=== PATIENT | female | born 1970 | race Caucasian/White ===

== ENCOUNTER → 2018-04-27 | Outpatient (CLI) | payer MEDICARE, OTHER ==
[~2018-04-27] MED LIST: UNKNOWN PSYCH MED
[2018-04-27 15:27] LABS: HEMOGLOBIN A1C 5.7 % (4.5-6.2)
[2018-04-27 15:35] LABS: CHOL/HDL RATIO 2.9 (3.9-5.7)
== END | disposition home or self-care (01) ==
LOC: LABMN 11:00
PROVIDERS: ATTEND Psychiatry & Neurology Psychiatry
DX: Z13.1 Encounter for screening for diabetes mellitus (principal); F25.9 Schizoaffective disorder, unspecified; Z79.899 Other long term (current) drug therapy
CPT/HCPCS: 82947; 83036

== ENCOUNTER 2019-06-04 14:07 | Emergency (ER) | payer MEDICARE, OTHER ==
[~2019-06-04] VITALS: Ht 162.6 cm; Wt 88.6 kg
[2019-06-04] MEDS ORDERED: BUPR75 PO (15:13)
[2019-06-04] MEDS ORDERED: LAMO100 PO (15:13)
[2019-06-04] MEDS ORDERED: ARIP5TAB8 PO (15:13)
[2019-06-04 15:54] VITALS: BP 129/78
== END 2019-06-04 16:01 | disposition home or self-care (01) ==
LOC: EMS 14:08
DX: F20.9 Schizophrenia, unspecified (principal); F31.9 Bipolar disorder, unspecified; Z76.0 Encounter for issue of repeat prescription; Z53.21 Procedure and treatment not carried out due to patient leaving prior to being seen by health care provider; Z79.899 Other long term (current) drug therapy

== ENCOUNTER 2019-06-15 19:10 | Emergency (ER) | payer MEDICARE, OTHER ==
[~2019-06-15] VITALS: Ht 160 cm; Wt 89.1 kg
[~2019-06-15 19:10] MED LIST changes: +ARIP5TAB8 PO; +BUPR75 PO; +LAMO100 PO
[2019-06-15 20:18] VITALS: BP 138/75
== END 2019-06-15 20:35 | disposition home or self-care (01) ==
LOC: EMS 19:10
DX: F31.9 Bipolar disorder, unspecified (principal); F20.9 Schizophrenia, unspecified; Z76.0 Encounter for issue of repeat prescription

== ENCOUNTER 2019-08-31 15:55 | Emergency (ER) | payer OTHER ==
[~2019-08-31] VITALS: Ht 157.5 cm; Wt 90.0 kg
[2019-08-31 15:59] VITALS: BP 137/89
== END 2019-08-31 16:58 | disposition home or self-care (01) ==
LOC: EMS 15:57
DX: F25.9 Schizoaffective disorder, unspecified (principal); Z76.0 Encounter for issue of repeat prescription; E78.00 Pure hypercholesterolemia, unspecified

== ENCOUNTER 2020-03-01 09:15 | Emergency (ER) | payer OTHER ==
[~2020-03-01] VITALS: Ht 152.4 cm; Wt 90.9 kg
[2020-03-01] MEDS ORDERED: NEOMYCIN/POLYMYXIN B/HYDROCORT 10 ML OTIC SUSPENSION AS ONE (11:00)
[2020-03-01 11:10] VITALS: BP 137/95
== END 2020-03-01 11:19 | disposition home or self-care (01) ==
LOC: EMS 09:18
DX: H61.22 Impacted cerumen, left ear (principal); F31.9 Bipolar disorder, unspecified; E78.00 Pure hypercholesterolemia, unspecified; F20.9 Schizophrenia, unspecified
CPT/HCPCS: 69209

== ENCOUNTER 2020-04-14 06:56 | Emergency (ER) | payer OTHER ==
[~2020-04-14] VITALS: Ht 160 cm; Wt 77.3 kg
[~2020-04-14 06:56] MED LIST changes: -BUPR75 PO
[2020-04-14] MEDS ORDERED: CYCLOBENZAPRINE HCL 10 MG TABLET PO ONE (08:30)
[2020-04-14] MEDS ORDERED: LIDOCAINE 5% TRANSDERMAL PATCH TD ONE (08:30)
[2020-04-14] MEDS ORDERED: KETOROLAC TROMETHAMINE 30 MG/ML VIAL IM ONE (08:30)
[2020-04-14 09:27] VITALS: BP 133/71
== END 2020-04-14 09:28 | disposition home or self-care (01) ==
LOC: EMS 06:57
DX: M62.830 Muscle spasm of back (principal)
CPT/HCPCS: 96372; 99283; J1885

== ENCOUNTER 2020-07-30 15:35 | Emergency (ER) | payer OTHER ==
[~2020-07-30] VITALS: Ht 162.6 cm; Wt 102.3 kg
[~2020-07-30 15:35] MED LIST changes: +ARIP5TAB37 PO; -ARIP5TAB8 PO
[2020-07-30] MEDS ORDERED: DiphenhydrAMINE HCL 50 MG/ML VIAL IVP ONE (16:00)
[2020-07-30] MEDS ORDERED: KETOROLAC TROMETHAMINE 30 MG/ML VIAL IVP ONE (16:00)
[2020-07-30] MEDS ORDERED: METOCLOPRAMIDE HCL 5 MG/ML 2 ML VIAL IVP ONE (16:00)
[2020-07-30] MEDS ORDERED: ACETAMINOPHEN 500 MG TABLET PO ONE (16:00)
[2020-07-30 16:23] LABS: BASOPHILS % (AUTO) 0.7 % (0.0-2.0); EOSINOPHILS % (AUTO) 0.9 % (1.0-6.0); HEMATOCRIT 41.3 % (36-46); HEMOGLOBIN 13.6 g/dL (12.0-16.0); LYMPHOCYTES # (AUTO) 1.3 K/uL (1.0-4.8); LYMPHOCYTES % (AUTO) 18.1 % (22.0-44.0); MEAN CORPUSCULAR HEMOGLOBIN 26.7 pg (26.0-34.0); MEAN CORPUSCULAR HGB CONC 32.9 G/dL (31.0-37.0); MEAN CORPUSCULAR VOLUME 81 fL (80-100); MONOCYTES # (AUTO) 0.3 K/uL (0.1-1.0); MONOCYTES % (AUTO) 4.7 % (2.0-9.0); NEUTROPHILS # (AUTO) 5.4 K/uL (1.8-7.7); NEUTROPHILS % (AUTO) 75.6 % (40.0-70.0); PLATELET COUNT (AUTO) 277 K/uL (150-450); RED BLOOD CELL COUNT(AUTO) 5.09 MIL/uL (4.00-5.20); RED CELL DISTRIBUTION WIDTH 14.6 % (11.5-14.5)
[2020-07-30 16:32] LABS: ANION GAP 11 mmol/L (8-16); CALCIUM, TOTAL 8.9 mg/dL (8.8-10.5); CARBON DIOXIDE 27 mmol/L (22-29); CHLORIDE 101 mmol/L (98-107); CREATININE 0.74 mg/dL (0.60-1.30); GLOMERULAR FILTR. RATE CALC > 60 mL/min (>60); GLUCOSE,RANDOM 143 mg/dL (70-110); POTASSIUM 3.7 mmol/L (3.5-5.1); SODIUM SERUM 139 mmol/L (136-145); UREA NITROGEN, BLOOD 11 mg/dL (7-18)
[2020-07-30 16:44] LABS: ALANINE AMINOTRANSFERASE 34 U/L (12-78); ALKALINE PHOSPHATASE 81 U/L (46-116); ASPARTATE AMINOTRANSFERASE 21 U/L (15-37); BILIRUBIN,TOTAL 0.4 mg/dL (0.1-1.0); HCG,QUANTITATIVE 1 mIU/mL (0-6); TOTAL PROTEIN, SERUM 7.6 g/dL (6.4-8.2)
[2020-07-30 17:51] VITALS: BP 148/94
== END 2020-07-30 17:52 | disposition home or self-care (01) ==
LOC: EMS 15:42
DX: R51.9 Headache, unspecified (principal); F31.9 Bipolar disorder, unspecified; E78.00 Pure hypercholesterolemia, unspecified; F20.9 Schizophrenia, unspecified
CPT/HCPCS: 36415; 80053; 84702; 85025; 96374; 96375; 99284; J1200; J1885; J2765

== ENCOUNTER 2020-09-01 10:00 | Emergency (ER) | payer OTHER ==
[~2020-09-01] VITALS: Ht 154.9 cm; Wt 101.4 kg
[2020-09-01] MEDS ORDERED: RISP0.5T39 PO (10:11)
[2020-09-01 14:15] VITALS: BP 131/72
== END 2020-09-01 14:53 | disposition home or self-care (01) ==
LOC: EMS 10:07
DX: F20.9 Schizophrenia, unspecified (principal); F31.9 Bipolar disorder, unspecified; E78.00 Pure hypercholesterolemia, unspecified; Z76.0 Encounter for issue of repeat prescription
CPT/HCPCS: 99281; Z7502

== ENCOUNTER 2020-11-05 20:59 | Emergency (ER) | payer OTHER ==
[~2020-11-05] VITALS: Ht 170.2 cm; Wt 90.9 kg
[~2020-11-05 20:59] MED LIST changes: +RISP0.5T39 PO; -UNKNOWN PSYCH MED
[2020-11-05] MEDS ORDERED: NAPROXEN 250 MG TABLET PO ONE (23:45)
[2020-11-06 00:10] VITALS: BP 129/68
== END 2020-11-06 00:15 | disposition home or self-care (01) ==
LOC: EMS 21:02
DX: S46.911A Strain of unspecified muscle, fascia and tendon at shoulder and upper arm level, right arm, initial encounter (principal); S16.1XXA Strain of muscle, fascia and tendon at neck level, initial encounter; M54.6 Pain in thoracic spine; F31.9 Bipolar disorder, unspecified; E78.00 Pure hypercholesterolemia, unspecified; F20.9 Schizophrenia, unspecified; X58.XXXA Exposure to other specified factors, initial encounter; Y93.89 Activity, other specified; Y92.89 Other specified places as the place of occurrence of the external cause; Y99.8 Other external cause status
CPT/HCPCS: 99282; Z7502; Z7610

== ENCOUNTER 2021-04-18 05:19 | Emergency (ER) | payer OTHER ==
[~2021-04-18] VITALS: Ht 157.5 cm; Wt 90.9 kg
[2021-04-18] MEDS ORDERED: IBUPROFEN 400 MG TABLET PO ONE (07:00)
[2021-04-18] MEDS ORDERED: ACETAMINOPHEN 325 MG TABLET PO ONE (07:00)
[2021-04-18 08:17] VITALS: BP 164/55
== END 2021-04-18 08:27 | disposition home or self-care (01) ==
LOC: EMS 05:20
DX: S93.401A Sprain of unspecified ligament of right ankle, initial encounter (principal); F31.9 Bipolar disorder, unspecified; E78.00 Pure hypercholesterolemia, unspecified; F20.9 Schizophrenia, unspecified; W18.40XA Slipping, tripping and stumbling without falling, unspecified, initial encounter; Y93.01 Activity, walking, marching and hiking; Y92.89 Other specified places as the place of occurrence of the external cause; Y99.8 Other external cause status
CPT/HCPCS: 99284; 73590-TC; 73610-TC; Z7502; Z7610

== ENCOUNTER 2021-06-06 06:14 | Emergency (ER) | payer OTHER ==
[~2021-06-06] VITALS: Ht 160 cm; Wt 90.0 kg
[2021-06-06] MEDS ORDERED: KETOROLAC TROMETHAMINE 60 MG/2 ML VIAL IM ONE (07:15)
[2021-06-06 08:37] VITALS: BP 110/62
== END 2021-06-06 09:04 | disposition home or self-care (01) ==
LOC: EMS 06:16
DX: R51.9 Headache, unspecified (principal); M25.571 Pain in right ankle and joints of right foot; F31.9 Bipolar disorder, unspecified; E78.00 Pure hypercholesterolemia, unspecified; F20.9 Schizophrenia, unspecified; Z79.899 Other long term (current) drug therapy
CPT/HCPCS: 73590; 96372; 99283; J1885

== ENCOUNTER 2021-07-30 10:20 | Emergency (ER) | payer OTHER ==
[~2021-07-30] VITALS: Ht 157.5 cm; Wt 90.9 kg
[2021-07-30] MEDS ORDERED: RisperiDONE 4 MG TABLET PO ONE (11:45)
[2021-07-30] MEDS ORDERED: RisperiDONE 1 MG TABLET PO ONE (11:45)
[2021-07-30 12:35] VITALS: BP 141/61
== END 2021-07-30 12:38 | disposition home or self-care (01) ==
LOC: EMS 10:20
DX: F31.9 Bipolar disorder, unspecified (principal); E78.00 Pure hypercholesterolemia, unspecified; F20.9 Schizophrenia, unspecified; Z98.51 Tubal ligation status; Z98.890 Other specified postprocedural states
CPT/HCPCS: 99283